=== PATIENT | male | born 1990 | race Caucasian/White ===

== ENCOUNTER 2019-05-15 21:07 | Emergency (ER) | payer MEDICAID, OTHER ==
[~2019-05-15] VITALS: Ht 167.6 cm; Wt 118.0 kg
[2019-05-15] MEDS ORDERED: SERT100T8 (21:18)
[2019-05-15] MEDS ORDERED: SULF1TAB35 PO (21:19)
--- NOTE | 2019-05-15 21:20 | ED Integumentary General ---
General Stated Complaint: INFECTION IN BELLY BUTTON/DIZZINESS Source: patient Exam Limitations: no limitations History of Present Illness Date Seen by Provider: May 15, 2019 Time Seen by Provider: 21:09 Initial Comments Patient resents to ER by private conveyance with chief complaint of pain and purulent discharge from his belly button. He says this is happened 4 times in the past and it usually will spontaneously clear. He has been expressing purulence out of it for the past 2-3 days. He has not been on antibiotics or seen a doctor for it ever. He doesn't have any known medical history. Allergies and Home Medications Allergies Coded Allergies: No Known Drug Allergies (Unverified , 05/15/19) Home Medications Sulfamethoxazole/Trimethoprim 1 Each Tablet, 1 EACH PO BID Prescribed by: BINDU MANZANO on 05/15/192118 Patient Home Medication List Home Medication List Reviewed: Yes Review of Systems Review of Systems Constitutional: No chills; dizziness; No fever EENTM: No ear discharge, No ear pain Respiratory: No cough, No dyspnea on exertion, No short of breath Cardiovascular: No chest pain, No palpitations Gastrointestinal: No abdominal pain, No constipation, No diarrhea, No nausea Musculoskeletal: No back pain, No joint pain Skin: see HPI Past Taqutle-Xsammz-Qnlqel Hx Patient Social History Alcohol Use: Denies Use Recreational Drug Use: No Recent Foreign Travel: No Contact w/Someone Who Travel: No Physical Exam Vital Signs Capillary Refill : General Appearance: WD/WN, no apparent distress HEENT: PERRL/EOMI, pharynx normal Cardiovascular: normal peripheral pulses, regular rate, rhythm Respiratory: no respiratory distress, no accessory muscle use Gastrointestinal: normal bowel sounds, non tender, soft Skin: other (mild erythema approximately 1 center around the bellybutton without induration. There is about 1-2 cc expressed of thin purulent material from the 12:00 position of the bellybutton.) Progress/Results/Core Measures Results/Orders My Orders Orders - BINDU MANZANO Sulfamethoxazole/Trimet Ds Tab (Bactrim (05/15/19 21:30) Progress Progress Note : Time: 21:17 Progress Note We discussed doing incised and drained versus just antibiotics the patient would prefer just to do the antibiotics and follow up outpatient with general surgery. Since his recurrent we have encouraged him to follow up as he may have anatomy predisposing him to abscesses, folliculitis etc. Departure Impression Primary Impression: Cutaneous abscess of umbilicus Disposition: 01 HOME, SELF-CARE Condition: Stable Departure-Patient Inst. Decision time for Depature: 21:18 Referrals: NO,LOCAL PHYSICIAN (PCP/Family) Primary Care Physician Patient Instructions: Skin Abscess Add. Discharge Instructions: Bactrim one tablet twice daily with food. Tylenol and ibuprofen for pain. Warm compresses applied as often as necessary for pain. Encourage drainage of discharge Call to follow-up with the general surgeon tomorrow. Return to the ER if you begin to experience fevers, nausea vomiting or other worrisome symptoms. Scripts Sulfamethoxazole/Trimethoprim (Bactrim Ds Tablet) 1 Each Tablet 1 EACH PO BID for 7 Days, #14 TAB 0 Refills Prov: BINDU MANZANO 05/15/19 BINDU MANZANO May 15, 2019 21:20 POS
[2019-05-15 21:25] VITALS: BP 123/79
[2019-05-15] MEDS ORDERED: TRIM/SULFAMETH 160/800 (SEPTRA DS) TAB PO ONE (21:30)
== END 2019-05-15 21:25 | disposition home or self-care (01) ==
LOC: EDUNIT# 21:07 → ER 21:09
DX: L02.216 Cutaneous abscess of umbilicus (principal)
CPT/HCPCS: 99283